=== PATIENT | female | born 1935 | race Caucasian/White ===

== ENCOUNTER 2019-12-26 11:57 | Inpatient (IN) | payer OTHER, SELFPAY ==
[~2019-12-26] VITALS: Ht 160 cm; Wt 72.6 kg
[2019-12-26 12:30] VITALS: BP_SYST 99
[2019-12-26 13:40] LABS: BASOPHILS % (AUTO) 0.2 % (0.0-2.0); EOSINOPHILS % (AUTO) 0.2 % (0.0-4.0); HEMATOCRIT 34.7 % (36-48); HEMOGLOBIN 11.5 g/dL (12.0-16.0); LYMPHOCYTES # (AUTO) 0.5 K/uL (1.0-5.5); LYMPHOCYTES % (AUTO) 2.7 % (20.5-51.5); MEAN CORPUSCULAR HEMOGLOBIN 31 pg (27-31); MEAN CORPUSCULAR HGB CONC 33 % (32-36); MEAN CORPUSCULAR VOLUME 92 fL (79.0-98.0); MONOCYTES # (AUTO) 1.4 K/uL (0.0-1.0); MONOCYTES % (AUTO) 7.3 % (1.7-9.3); NEUTROPHILS # (AUTO) 17.6 K/uL (1.8-7.7); NEUTROPHILS % (AUTO) 89.6 % (40.0-70.0); PLATELET COUNT (AUTO) 382 K/uL (130-430); RED BLOOD CELL COUNT(AUTO) 3.76 MIL/uL (4.2-6.2); RED CELL DISTRIBUTION WIDTH 14.2 % (9.0-15.0); WHITE BLOOD COUNT (AUTO) 19.6 K/uL (4.8-10.8)
[2019-12-26 13:56] LABS: ANION GAP 13 (5-15); CALCIUM 8.8 mg/dL (8.4-11.0); CHLORIDE 95 mmol/L (98-107); CREATININE 5.39 mg/dL (0.55-1.30); GLUCOSE 138 mg/dL (70-99); POTASSIUM 5.3 mmol/L (3.5-5.1); SODIUM SERUM 127 mmol/L (136-145)
[2019-12-26 13:57] LABS: INR 1.7 (0.8-1.2); PROTHROMBIN TIME 17.6 SECS (9.5-12.5)
[2019-12-26 13:59] LABS: UREA NITROGEN, BLOOD 136 mg/dL (8-21)
[2019-12-26 14:01] LABS: ALANINE AMINOTRANSFERASE 67 U/L (12-78); ASPARTATE AMINOTRANSFERASE 76 U/L (10-37); TOTAL BILIRUBIN 0.8 mg/dL (0.0-1.0)
--- NOTE | 2019-12-26 14:08 | NUR ---
BROUGHT BACK TO BED #3 VIA WHEELCHAIR, PLACED IN BED AND REPORT GIVEN TO RICH
--- NOTE | 2019-12-26 14:10 | NUR ---
Patient arrived in the ED c/o generalized weakness, UTI, yeast infection, groin pain, and bruising on the left inner thigh for the last 2 days. Denied any chest pain or shortness of breath. Denied any fevers, chills, nausea or vomiting. Patient is alert and oriented x3, respirations even and unlabored, speaking in full sentences, and ambulating with a steady gait. VSS, pain level 4/10. Informed of the approximate wait time. Instructed to notify ED staff for any changes in condition or worsening of symptoms while waiting to be seen by an ED provider. Patient verbalized understanding.
[2019-12-26] MEDS ORDERED: NACL 0.9% 1,000 ML IV ONE ×2 (14:30→15:15)
--- NOTE | 2019-12-26 15:05 | NUR ---
# 22 gauge angiocath placed to LFA. Use of asceptic technique. Opsite placed over site. Blood return noted. Blood for lab drawn from site. Flushed with 10 cc of normal saline. No evidence of infiltration noted. Patient tolerated well.
--- NOTE | 2019-12-26 15:10 | NUR ---
ER Dr. Redmond at bedside examining patient.
[2019-12-26 15:41] LABS: BILIRUBIN,URINE NEGATIVE (NEGATIVE); CLARITY/URINE CLEAR (CLEAR); COLOR,URINE YELLOW (YELLOW); GLUCOSE,URINE NEGATIVE (NEGATIVE); KETONES,URINE NEGATIVE (NEGATIVE); LEUKOCYTE ESTERASE ,URINE 1+ (NEGATIVE); NITRITE, URINE NEGATIVE (NEGATIVE); PROTEIN URINE NEGATIVE (NEGATIVE); UROBILINOGEN,URINE 0.2 (0.2-1.0)
[2019-12-26] MEDS ORDERED: cefTRIAXone 1 GM IVPB PREMIX 50 ML IV ONE (15:45)
[2019-12-26 15:52] LABS: BLOOD, URINE TRACE (NEGATIVE)
--- NOTE | 2019-12-26 16:09 | NUR ---
Received admitting orders from Dr. Thapa.
[2019-12-26 16:28] LABS: BACTERIA,URINE None Seen /HPF (None Seen); RBC,URINE 0-3 /HPF (0-3)
[2019-12-26 16:29] LABS: MUCUS,URINE None Seen /LPF (None Seen)
--- NOTE | 2019-12-26 17:55 | NUR ---
Patient will be admitted to care of Dr. Thapa. Admitted to Tele unit. Will go to room 104B. Belongings list completed. Complete and up to date summary report printed. SBAR report to be given at bedside with opportunity for questions.
[2019-12-26] MEDS ORDERED: PIPERACILLIN/TAZO 3.375/DEX-IS 50 ML IV SCH (18:00)
--- NOTE | 2019-12-26 18:25 | NUR ---
ADMISSION NOTE Received patient from ER via muna, received report from Pretty FARR. Patient admitted with diagnosis of Sepsis, Renal Failure. Patient oriented to hospital routine, call light, toileting and safety-patient verbalized her understanding. Call light within reach.
[2019-12-26] MEDS ORDERED: PIPERACILLIN/TAZO 2.25G/DEX-IS 50 ML IV ONE (18:30)
--- NOTE | 2019-12-26 19:30 | NUR ---
Initial Note: Received report from susan RN. Patient is in bed, resting. No acute distress. Even, nonlabored breathing on room air. IV site is patent and intact. Bed is locked at lowest position. Side rails up x3. Bed alarm on. Call light is with patient. Safety and fall precautions in place. Will continue with plan of care.
[2019-12-26 19:42] VITALS: BP_SYST 157
[2019-12-26 20:00] VITALS: BP_SYST 139
[2019-12-26] MEDS: NACL 0.9% 1,000 ML IV SCH (20:58)
--- NOTE | 2019-12-26 21:48 | NUR ---
CONSULT REASON FOR CONSULT:RENAL FAILURE PERSON I SPOKE WITH: CHRIS CONSULTING PHYSICIAN: DR. ESCOBEDO SPECIMEN PROCESSOR PHONE NUMBER: [phone] ORDERING PHYSICIAN: DR. BRODERICK
--- NOTE | 2019-12-26 22:00 | NUR ---
Rounds: Patient is watching TV in bed. No s/s of acute distress. Tolerating room air. Even, nonlabored breathing. Call light is with patient. Safety and fall precautions in place.
--- NOTE | 2019-12-26 22:33 | NUR ---
Spoke to family member: Spoke to patient's son, Deni [phone], over the phone. Updated on patient status.
[2019-12-26] MEDS ORDERED: PIPERACILLIN/TAZOBACTAM 2.25 GM VIAL IV ONE (23:36)
[2019-12-27] VITALS: BP_SYST 134
--- NOTE | 2019-12-27 00:10 | NUR ---
Rounds: Patient is resting in bed. Pericare performed at this time. No acute distress. Breathing is even, nonlabored on room air. Call light is with a patient. Safety and fall precautions in place. Will continue monitoring.
--- NOTE | 2019-12-27 02:14 | NUR ---
Rounds: Patient is sleeping in bed. No s/s of acute distress. Breathing is even and unlabored. Call light is with patient. Safety and fall precautions in place. Will continue monitoring.
[2019-12-27] MEDS: NACL 0.9% 1,000 ML IV SCH ×4 (02:15→19:40)
--- NOTE | 2019-12-27 04:17 | NUR ---
Rounds: Patient is watching TV in bed. No signs of acute distress. Respirations even and unlabored. Call light is with patient. Safety and fall precautions in place. Will continue to monitor patient.
[2019-12-27] MEDS: PIPERACILLIN/TAZO 2.25G/DEX-IS 50 ML IV SCH ×3 (05:02→21:13)
--- NOTE | 2019-12-27 06:25 | NUR ---
Closing Note: Patient is in bed, resting. No acute distress. Even, nonlabored breathing on room air. IV site is patent and intact. All needs met. Bed is locked at lowest position. Side rails up x3. Bed alarm on. Call light is with patient. Safety and fall precautions in place. Will endorse care to dayshift RN.
--- NOTE | 2019-12-27 07:20 | NUR ---
OPENING NOTES PT RESTING IN BED, CHEST RISE AND FALL NOTED. NONLABORED BREATHING NOTED ON ROOM AIR. IV LINE INTACT AND PATENT, NO SIGNS OF INFILTRATION NOTED. NO ACUTE DISTRESS NOTED. ALL NEEDS MET. CALL LIGHT IN REACH. FALL AND ASPIRATION PRECAUTIONS IN PLACE. CONTINUE TO MONITOR.
[2019-12-27 07:30] LABS: BASOPHILS % (AUTO) 0.1 % (0.0-2.0); EOSINOPHILS % (AUTO) 0.3 % (0.0-4.0); HEMOGLOBIN 9.9 g/dL (12.0-16.0); LYMPHOCYTES # (AUTO) 0.5 K/uL (1.0-5.5); LYMPHOCYTES % (AUTO) 2.9 % (20.5-51.5); MEAN CORPUSCULAR HEMOGLOBIN 31 pg (27-31); MEAN CORPUSCULAR HGB CONC 33 % (32-36); MEAN CORPUSCULAR VOLUME 93 fL (79.0-98.0); MONOCYTES # (AUTO) 1.4 K/uL (0.0-1.0); MONOCYTES % (AUTO) 8.6 % (1.7-9.3); NEUTROPHILS # (AUTO) 14.3 K/uL (1.8-7.7); NEUTROPHILS % (AUTO) 88.1 % (40.0-70.0); PLATELET COUNT (AUTO) 381 K/uL (130-430); RED BLOOD CELL COUNT(AUTO) 3.23 MIL/uL (4.2-6.2); RED CELL DISTRIBUTION WIDTH 14.5 % (9.0-15.0); WHITE BLOOD COUNT (AUTO) 16.2 K/uL (4.8-10.8)
[2019-12-27 07:39] LABS: ALANINE AMINOTRANSFERASE 57 U/L (12-78); ALBUMIN 1.7 g/dL (3.4-4.8); ANION GAP 15 (5-15); ASPARTATE AMINOTRANSFERASE 56 U/L (10-37); CALCIUM 8.5 mg/dL (8.4-11.0); CHLORIDE 101 mmol/L (98-107); CREATININE 4.57 mg/dL (0.55-1.30); GLUCOSE 97 mg/dL (70-99); SODIUM SERUM 132 mmol/L (136-145); TOTAL BILIRUBIN 0.7 mg/dL (0.0-1.0)
[2019-12-27 08:06] VITALS: BP_SYST 134
[2019-12-27 08:51] LABS: UREA NITROGEN, BLOOD 129 mg/dL (8-21)
--- NOTE | 2019-12-27 08:58 | NUR ---
Nutrition Update Charlie scale 13 noted. Pt admitted for sepsis, renal failure Diet: Mechanical Soft BMI: 28.3 kg/m2 RD to follow per nutrition care standards.
--- NOTE | 2019-12-27 09:00 | NUR ---
ROUNDS PT RESTING IN BED, CHEST RISE AND FALL NOTED. NO ACUTE DISTRESS NOTED. NO S/S OF PAIN OR SOB NOTED. CONTINUE TO MONITOR.
--- NOTE | 2019-12-27 10:16 | NUR ---
SPOKE TO PATIENT'S SON DASIA ON FACE SHEET OVER THE PHONE, REQUESTED FOR MED LIST. STATED THAT LIST WAS GIVEN TO E.R., BUT MED RECON NOT DONE. DASIA STATED WILL FAX OVER MED SHEET TO [phone].
[2019-12-27 11:32] VITALS: BP_SYST 119
--- NOTE | 2019-12-27 12:00 | NUR ---
RECEIVED PT'S MED LIST THROUGH THE PHONE FROM PT'S SON DASIA, WILL INPUT IN MED RECON
--- NOTE | 2019-12-27 12:49 | NUR ---
ROUNDS PT WATCHING TV IN BED AND EATING LUNCH. NO ACUTE DISTRESS NOTED. ALL NEEDS MET. CALL LIGHT IN REACH. CONTINUE TO MONITOR.
--- NOTE | 2019-12-27 13:11 | NUR ---
IV ABX ADMINISTERED ORDERED PER MD, EDUCATION GIVEN, TOLERATED WELL. CONTINUE TO MONITOR.
--- NOTE | 2019-12-27 13:25 | NUR ---
GAVE REPORT TO GAYE FARR, ENDORSED MED RECON LIST TO BE DONE AND INTERVENTIONS. RN VERBALIZED UNDERSTANDING.
--- NOTE | 2019-12-27 16:45 | NUR ---
RN Rounds patient struggling with her breathing, patient's SPO2 within normal limits, repositioned patient, patient in stable condition, no other needs at this time, safety measures maintained.
--- NOTE | 2019-12-27 19:20 | NUR ---
Closing Note patient in bed resting, no signs of distress noted, bed locked and at low position, call light within reach, endorsed patient care to oncoming weight shifter nurse, endorsed med reconciliation to be complete.
--- NOTE | 2019-12-27 19:30 | NUR ---
Initial Note: Received report from susan RN. Patient is in bed, eating. No acute distress. Even, nonlabored breathing on room air. IV site is patent and intact. Bed is locked at lowest position. Side rails up x3. Bed alarm on. Call light is with patient. Safety and fall precautions in place. Will continue with plan of care.
[2019-12-27 20:00] VITALS: BP_SYST 142
--- NOTE | 2019-12-27 21:30 | NUR ---
Rounds: Patient is watching TV in bed. No s/s of acute distress. Respirations even, nonlabored on room air. Call light is with patient. Safety and fall precautions in place. Addendum: 12/28/19 at 0147 by Kary Hurd RN Will continue monitoring.
[2019-12-27] MEDS ORDERED: ALLO100T PO (22:32)
[2019-12-27] MEDS ORDERED: RIVA15TA PO (22:41)
[2019-12-27] MEDS ORDERED: OXYB5TAB18 PO ×2 (22:41→22:43)
[2019-12-27] MEDS ORDERED: CARV12.548 PO (22:41)
[2019-12-27] MEDS ORDERED: MONT10TA22 PO (22:41)
[2019-12-27] MEDS ORDERED: FURO-150 PO (22:41)
[2019-12-27] MEDS ORDERED: FLEC50TA2 PO (22:41)
[2019-12-27] MEDS ORDERED: PRO40 PO (22:41)
[2019-12-27] MEDS ORDERED: LOSA50TA28 PO (22:41)
[2019-12-27] MEDS ORDERED: SIMV40TA2 PO (22:43)
[2019-12-27] MEDS ORDERED: LOSA100T3 PO (22:43)
[2019-12-27] MEDS ORDERED: NITR-85 PO ×2 (22:49→22:51)
[2019-12-27] MEDS ORDERED: AUG875 PO (22:49)
--- NOTE | 2019-12-27 23:45 | NUR ---
Rounds: Patient is sleeping in bed. No signs of acute distress. Breathing is even and unlabored on room air. Call light is with patient. Safety and fall precautions in place. Will continue to monitor.
[2019-12-28 00:25] VITALS: BP_SYST 152
[2019-12-28 00:51] VITALS: BP_SYST 158
--- NOTE | 2019-12-28 02:00 | NUR ---
Rounds: Patient is resting in bed. No s/s of acute distress. Breathing is even, nonlabored. Call light is with patient. Safety and fall precautions in place. Will continue monitoring.
--- NOTE | 2019-12-28 04:15 | NUR ---
Rounds: Patient is sleeping in bed. No s/s of acute distress. Breathing is even and unlabored on room air. Call light is with patient. Safety and fall precautions in place. Will continue to monitor patient.
[2019-12-28] MEDS: NACL 0.9% 1,000 ML IV SCH ×2 (05:04→18:21)
[2019-12-28] MEDS: PIPERACILLIN/TAZO 2.25G/DEX-IS 50 ML IV SCH ×3 (05:05→22:09)
[2019-12-28 06:17] LABS: BASOPHILS # (AUTO) 0.1 K/uL (0.0-0.2); BASOPHILS % (AUTO) 0.5 % (0.0-2.0); EOSINOPHILS % (AUTO) 0.2 % (0.0-4.0); HEMATOCRIT 28.5 % (36-48); HEMOGLOBIN 9.5 g/dL (12.0-16.0); LYMPHOCYTES # (AUTO) 0.5 K/uL (1.0-5.5); LYMPHOCYTES % (AUTO) 3.3 % (20.5-51.5); MEAN CORPUSCULAR HEMOGLOBIN 31 pg (27-31); MEAN CORPUSCULAR HGB CONC 33 % (32-36); MEAN CORPUSCULAR VOLUME 92 fL (79.0-98.0); MONOCYTES # (AUTO) 1.5 K/uL (0.0-1.0); MONOCYTES % (AUTO) 9.9 % (1.7-9.3); NEUTROPHILS # (AUTO) 13.2 K/uL (1.8-7.7); NEUTROPHILS % (AUTO) 86.1 % (40.0-70.0); PLATELET COUNT (AUTO) 392 K/uL (130-430); RED BLOOD CELL COUNT(AUTO) 3.08 MIL/uL (4.2-6.2); RED CELL DISTRIBUTION WIDTH 14.5 % (9.0-15.0); WHITE BLOOD COUNT (AUTO) 15.4 K/uL (4.8-10.8)
[2019-12-28 06:38] LABS: ALANINE AMINOTRANSFERASE 86 U/L (12-78); ALBUMIN 1.5 g/dL (3.4-4.8); ANION GAP 13 (5-15); CHLORIDE 108 mmol/L (98-107); CREATININE 3.75 mg/dL (0.55-1.30); GLUCOSE 113 mg/dL (70-99); POTASSIUM 4.5 mmol/L (3.5-5.1); SODIUM SERUM 138 mmol/L (136-145); TOTAL BILIRUBIN 0.6 mg/dL (0.0-1.0)
--- NOTE | 2019-12-28 07:15 | NUR ---
Initial Note: Received report from bam RN. Patient is in bed. No acute distress. Even, nonlabored breathing on room air. IV site is patent and intact. Bed is locked at lowest position. Side rails up x3. Bed alarm on. Call light is with patient. Safety and fall precautions in place. Will continue with plan of care. Addendum: 12/28/19 at 1816 by [employer] one valve inserter wrong pt.
--- NOTE | 2019-12-28 07:22 | NUR ---
Initial Note: Received report from nightshift RN. Patient is in bed. No acute distress. Even, nonlabored breathing on room air. IV site is patent and intact. Bed is locked at lowest position. Side rails up x3. Bed alarm on. Call light is with patient. Safety and fall precautions in place. Will continue with plan of care.
[2019-12-28 07:53] LABS: UREA NITROGEN, BLOOD 113 mg/dL (8-21)
[2019-12-28 07:54] LABS: ASPARTATE AMINOTRANSFERASE 89 U/L (10-37)
--- NOTE | 2019-12-28 10:27 | NUR ---
CONSULTATION PAGED/CALLED Reason for Consultation: BLADDER MASS Person Who was Notified: ANA MARIA Consulting Physician: TONJA GERMAIN Ordering Physician: MEGGAN
--- NOTE | 2019-12-28 10:48 | NUR ---
Dietitian Recommendations *Recommend continue Mechanical Soft Diet *Recommend add Glucerna BID to provide additional 440 kcal, 20 g protein to promote PO intake and for glycemic control. *Encourage pt to increase PO intake during meal times. Please see Nutrition Assessment for details. CARMEN DANIEL
[2019-12-28 12:00] VITALS: BP_SYST 156
[2019-12-28 16:00] VITALS: BP_SYST 164
--- NOTE | 2019-12-28 19:30 | NUR ---
OPENING NOTES RECEIVED REPORT FROM DAY SHIFT RN. PT RESTING IN BED, ALERT & ORIENTED X3. BREATHING EVEN AND UNLABORED TO ROOM AIR. NO SIGNS OF RESPIRATORY DISTRESS NOTED. LEFT AC 22G INTACT, IVF RUNNING ORDERED RATE. NO SIGNS OF INFILTRATION NOTED. BED ALARM ON, LOCKED IN LOWEST POSITION. SIDE RAILS UP X3. CALL LIGHT WITHIN REACH. SAFETY AND FALL PRECAUTIONS MAINTAINED. WILL CONTINUE TO MONITOR.
[2019-12-28 20:00] VITALS: BP_SYST 119
--- NOTE | 2019-12-28 22:14 | NUR ---
DR. MARCELLUS EVANGELISTA AT THE BEDSIDE. NEW ORDER RECEIVED.
[2019-12-28 23:21] LABS: BILIRUBIN,URINE NEGATIVE (NEGATIVE); BLOOD, URINE 2+ (NEGATIVE); CLARITY/URINE CLOUDY (CLEAR); COLOR,URINE YELLOW (YELLOW); GLUCOSE,URINE NEGATIVE (NEGATIVE); KETONES,URINE NEGATIVE (NEGATIVE); LEUKOCYTE ESTERASE ,URINE 3+ (NEGATIVE); NITRITE, URINE NEGATIVE (NEGATIVE); PROTEIN URINE 2+ (NEGATIVE); UROBILINOGEN,URINE 0.2 (0.2-1.0)
[2019-12-28 23:26] LABS: BACTERIA,URINE MODERATE /HPF (None Seen); RBC,URINE 20-50 /HPF (0-3); WBC,URINE >100 /HPF (0-3)
--- NOTE | 2019-12-28 23:35 | NUR ---
RN ROUNDS PT RESTING IN BED. BREATHING EVEN AND UNLABORED TO ROOM AIR. IVF RUNNING ORDERED RATE. PT TOLERATING WELL. CLARKE CATHETER INTACT, DRAINING BY GRAVITY. CALL LIGHT WITHIN REACH. BED ALARM ON, LOCKED IN LOWEST POSITION. SAFETY AND FALL PRECAUTIONS MAINTAINED. WILL CONTINUE TO MONITOR.
[2019-12-29 00:24] VITALS: BP_SYST 152
[2019-12-29] MEDS: NACL 0.9% 1,000 ML IV SCH ×2 (01:22→14:15)
--- NOTE | 2019-12-29 02:05 | NUR ---
RN ROUNDS PT RESTING IN BED. BREATHING EVEN AND UNLABORED TO ROOM AIR. NO S/S OF SHORTNESS OF BREATH NOTED. IVF RUNNING ORDERED RATE. CLARKE CATHETER INTACT, DRAINING BY GRAVITY. CALL LIGHT WITHIN REACH. BED ALARM ON, LOCKED IN LOWEST LEVEL. SAFETY AND FALL PRECAUTIONS MAINTAINED. WILL MONITOR.
[2019-12-29] MEDS: PIPERACILLIN/TAZO 2.25G/DEX-IS 50 ML IV SCH ×3 (05:07→22:17)
--- NOTE | 2019-12-29 05:07 | NUR ---
HUNG ZOSYN HUNG ZOSYN ORDERED RATE. NO S/S OF ADVERSE REACTION NOTED. PT TOLERATING WELL. BREATHING EVEN AND UNLABORED TO ROOM AIR. O2 SAT 94%. IVF RUNNING ORDERED RATE. CALL LIGHT WITHIN REACH. BED ALARM ON, LOCKED IN LOWEST LEVEL. SAFETY AND FALL PRECAUTIONS MAINTAINED. WILL CONTINUE TO MONITOR.
[2019-12-29 06:27] LABS: BASOPHILS % (AUTO) 0.3 % (0.0-2.0); EOSINOPHILS # (AUTO) 0.1 K/uL (0.0-0.4); EOSINOPHILS % (AUTO) 0.8 % (0.0-4.0); HEMATOCRIT 28.6 % (36-48); HEMOGLOBIN 9.5 g/dL (12.0-16.0); LYMPHOCYTES # (AUTO) 0.6 K/uL (1.0-5.5); LYMPHOCYTES % (AUTO) 4.8 % (20.5-51.5); MEAN CORPUSCULAR HEMOGLOBIN 31 pg (27-31); MEAN CORPUSCULAR HGB CONC 33 % (32-36); MEAN CORPUSCULAR VOLUME 93 fL (79.0-98.0); MONOCYTES # (AUTO) 1.4 K/uL (0.0-1.0); MONOCYTES % (AUTO) 10.6 % (1.7-9.3); NEUTROPHILS # (AUTO) 10.6 K/uL (1.8-7.7); NEUTROPHILS % (AUTO) 83.5 % (40.0-70.0); PLATELET COUNT (AUTO) 371 K/uL (130-430); RED BLOOD CELL COUNT(AUTO) 3.09 MIL/uL (4.2-6.2); WHITE BLOOD COUNT (AUTO) 12.7 K/uL (4.8-10.8)
--- NOTE | 2019-12-29 06:32 | NUR ---
CLOSING NOTES PT RESTING IN BED. BREATHING EVEN AND UNLABORED TO ROOM AIR. NO SIGNS OF RESPIRATORY DISTRESS NOTED. LEFT AC 22G INTACT, IVF RUNNING ORDERED RATE. NO SIGNS OF INFILTRATION NOTED. CLARKE CATHETER INTACT, DRAINING BY GRAVITY. BED ALARM ON, LOCKED IN LOWEST POSITION. SIDE RAILS UP X3. CALL LIGHT WITHIN REACH. SAFETY AND FALL PRECAUTIONS MAINTAINED. ALL NEEDS ARE MET THROUGHOUT THE SHIFT. WILL CONTINUE TO MONITOR UNTIL ENDORSE TO DAY SHIFT RN.
[2019-12-29 06:53] LABS: ALANINE AMINOTRANSFERASE 80 U/L (12-78); ALBUMIN 1.5 g/dL (3.4-4.8); ANION GAP 12 (5-15); ASPARTATE AMINOTRANSFERASE 65 U/L (10-37); CHLORIDE 112 mmol/L (98-107); CREATININE 3.18 mg/dL (0.55-1.30); GLUCOSE 129 mg/dL (70-99); POTASSIUM 4.5 mmol/L (3.5-5.1); SODIUM SERUM 141 mmol/L (136-145); TOTAL BILIRUBIN 0.6 mg/dL (0.0-1.0); UREA NITROGEN, BLOOD 95 mg/dL (8-21)
[2019-12-29 08:00] VITALS: BP_SYST 152
[2019-12-29 12:09] VITALS: BP_SYST 151
[2019-12-29 12:36] LABS: BILIRUBIN,URINE NEGATIVE (NEGATIVE); BLOOD, URINE 3+ (NEGATIVE); CLARITY/URINE TURBID (CLEAR); COLOR,URINE YELLOW (YELLOW); GLUCOSE,URINE NEGATIVE (NEGATIVE); KETONES,URINE NEGATIVE (NEGATIVE); LEUKOCYTE ESTERASE ,URINE 3+ (NEGATIVE); NITRITE, URINE NEGATIVE (NEGATIVE); PH,URINE 5.5 (5.0-8.0); PROTEIN URINE 2+ (NEGATIVE); UROBILINOGEN,URINE 0.2 (0.2-1.0)
[2019-12-29 12:52] LABS: BACTERIA,URINE MANY /HPF (None Seen); RBC,URINE 20-50 /HPF (0-3); WBC,URINE >100 /HPF (0-3)
[2019-12-29 16:06] VITALS: BP_SYST 135
--- NOTE | 2019-12-29 18:11 | NUR ---
Pleasantly confused, but alert, UA collected again today, (+), seen by both nephro, (bun/cr 95/3.18), and attending. continues with ivf and abx as ordered
--- NOTE | 2019-12-29 19:30 | NUR ---
OPENING NOTES RECEIVED REPORT FROM DAY SHIFT RN. PT RESTING IN BED, WATCHING TV. BREATHING EVEN AND UNLABORED TO ROOM AIR. PT JUNE ANY PAIN AT THIS TIME. LEFT AC22G INTACT, IVF RUNNING ORDERED RATE. NO SIGNS OF INFILTRATION NOTED. CLARKE CATHETER INTACT, DRAINING BY GRAVITY. CALL LIGHT WITHIN REACH. BED ALARM ON, LOCKED IN LOWEST POSITION. SAFETY AND FALL PRECAUTIONS MAINTAINED. WILL CONTINUE TO MONITOR.
[2019-12-29 20:00] VITALS: BP_SYST 157
--- NOTE | 2019-12-29 22:17 | NUR ---
HUNG ZOSYN HUNG ZOSYN ORDERED RATE. NO SIGNS OF INFILTRATION NOTED. PT TOLERATING WELL. CHEST RISE AND FALL SYMMETRICAL. NO SIGNS OF RESPIRATORY DISTRESS NOTED. CALL LIGHT WITHIN REACH. SIDE RAILS UP X3. BED ALARM ON, LOCKED IN LOWEST POSITION. SAFETY AND FALL PRECAUTIONS MAINTAINED. WILL CONTINUE TO MONITOR.
--- NOTE | 2019-12-30 00:35 | NUR ---
RN ROUNDS PT RESTING IN BED. BREATHING EVEN AND UNLABORED TO ROOM AIR. NO S/S OF ACUTE DISTRESS NOTED. IVF RUNNING ORDERED RATE. CALL LIGHT WITHIN REACH. BED ALARM ON, LOCKED IN LOWEST POSITION. SAFETY AND FALL PRECAUTIONS MAINTAINED. WILL MONITOR.
[2019-12-30 02:42] VITALS: BP_SYST 158
[2019-12-30 02:48] VITALS: BP_SYST 158
[2019-12-30] MEDS: NACL 0.9% 1,000 ML IV SCH ×2 (05:01→12:03)
[2019-12-30] MEDS: PIPERACILLIN/TAZO 2.25G/DEX-IS 50 ML IV SCH ×3 (05:02→21:29)
--- NOTE | 2019-12-30 06:55 | NUR ---
CLOSING NOTES PT RESTING IN BED. BREATHING EVEN AND UNLABORED TO ROOM AIR. PT JUNE ANY PAIN AT THIS TIME. LEFT AC22G INTACT, IVF RUNNING ORDERED RATE. NO SIGNS OF INFILTRATION NOTED. CLARKE CATHETER INTACT, DRAINING BY GRAVITY. CALL LIGHT WITHIN REACH. BED ALARM ON, LOCKED IN LOWEST POSITION. SAFETY AND FALL PRECAUTIONS MAINTAINED. ALL NEEDS ARE MET THROUGHOUT SHIFT. WILL CONTINUE TO MONITOR UNTIL ENDORSE TO DAY SHIFT RN.
[2019-12-30 08:00] VITALS: BP_SYST 170
[2019-12-30 08:00] LABS: ANION GAP 11 (5-15); CALCIUM 8.4 mg/dL (8.4-11.0); CHLORIDE 117 mmol/L (98-107); CREATININE 2.34 mg/dL (0.55-1.30); GLUCOSE 127 mg/dL (70-99); POTASSIUM 5.1 mmol/L (3.5-5.1); SODIUM SERUM 146 mmol/L (136-145); UREA NITROGEN, BLOOD 72 mg/dL (8-21)
[2019-12-30] MEDS ORDERED: CARVEDILOL 12.5 MG TABLET (COREG) PO ONE (11:45)
[2019-12-30 12:08] VITALS: BP_SYST 171
[2019-12-30 16:13] VITALS: BP_SYST 162
[2019-12-30] MEDS ORDERED: MONT10TA27 PO (17:03)
[2019-12-30] MEDS: MONTELUKAST 10 MG TABLET PO SCH (18:31)
--- NOTE | 2019-12-30 19:40 | NUR ---
ROUNDS PATIENT RESTING COMFORTABLY IN BED, NOT IN DISTRESS, VITALS STABLE. DENIES ANY PAIN AND DISCOMFORT AT THIS TIME. ASSESSMENT DONE AND DOCUMENTED. SEE FLOWSHEET. NEEDS ATTENDED TO. SAFETY AND FALL MEASURES IN PLACED. CALL LIGHT PLACED WITHIN REACH.
--- NOTE | 2019-12-30 21:14 | NUR ---
MEDICATIONS DUE MEDICATIONS GIVEN SCHEDULED, TOLERATED WELL. WILL CONTINUE TO MONITOR.
[2019-12-30] MEDS: NITROFURANTOIN MONOHYD/M-CRYST 100 MG CAPSULE PO SCH (21:28)
[2019-12-30] MEDS: SIMVASTATIN 40 MG TABLET PO SCH (21:28)
[2019-12-30] MEDS: FLECAINIDE ACETATE 50 MG TABLET (TAMBOCOR) PO SCH (21:29)
[2019-12-31] VITALS: BP_SYST 149
--- NOTE | 2019-12-31 00:16 | NUR ---
PATIENT RESTING: Patient resting quietly. No acute distress noted. Vital signs within normal range.
--- NOTE | 2019-12-31 02:17 | NUR ---
ROUNDS PATIENT ASLEEP, RESPIRATIONS EVEN AND UNLABORED, WILL CONTINUE TO MONITOR.
--- NOTE | 2019-12-31 04:12 | NUR ---
ROUNDS PATIENT SLEEPING, RESPIRATIONS EVEN AND UNLABORED, WILL CONTINUE TO MONITOR.
[2019-12-31] MEDS: PIPERACILLIN/TAZO 2.25G/DEX-IS 50 ML IV SCH ×3 (05:48→21:18)
--- NOTE | 2019-12-31 06:55 | NUR ---
CLOSING NOTES PATIENT RESTING IN BED AT THIS TIME, VITALS STABLE, NO COMPLAINTS. ALL NEEDS ATTENDED TO. SAFETY MEASURES MAINTAINED. CALL LIGHT PLACED WITHIN REACH.
[2019-12-31 07:30] LABS: ANION GAP 10 (5-15); CALCIUM 8.4 mg/dL (8.4-11.0); CHLORIDE 113 mmol/L (98-107); CREATININE 2.05 mg/dL (0.55-1.30); GLUCOSE 114 mg/dL (70-99); SODIUM SERUM 143 mmol/L (136-145); UREA NITROGEN, BLOOD 58 mg/dL (8-21)
--- NOTE | 2019-12-31 08:00 | NUR ---
awake,alert,BP elevated to 180/104,no c/o pain or discomfort,give am meds due for HTN,IVF continue infusing. needs attended,call light & personal items within pt reach,safety maintained.continue to monitor pt.
[2019-12-31] MEDS: OXYBUTYNIN CHLORIDE 5 MG TABLET PO SCH (08:36)
[2019-12-31] MEDS: FLECAINIDE ACETATE 50 MG TABLET (TAMBOCOR) PO SCH ×2 (08:36→20:19)
[2019-12-31] MEDS: ALLOPURINOL 100 MG TABLET (ZYLOPRIM) PO SCH (08:37)
[2019-12-31] MEDS: CARVEDILOL 12.5 MG TABLET (COREG) PO SCH (08:37)
[2019-12-31] MEDS: PANTOPRAZOLE SODIUM 40 MG TAB PO SCH (08:38)
[2019-12-31] MEDS: RIVAROXABAN 15 MG TABLET PO SCH (08:40)
[2019-12-31] MEDS: NITROFURANTOIN MONOHYD/M-CRYST 100 MG CAPSULE PO SCH ×2 (08:43→20:17)
[2019-12-31] MEDS: NACL 0.9% 1,000 ML IV SCH (08:51)
[2019-12-31] MEDS ORDERED: MONTELUKAST 10 MG TABLET PO SCH (09:00)
[2019-12-31] MEDS ORDERED: OXYBUTYNIN CHLORIDE 5 MG TABLET PO SCH (09:00)
--- NOTE | 2019-12-31 10:00 | NUR ---
pt resting in bed,hourly rounds made,safety maintained.
--- NOTE | 2019-12-31 12:00 | NUR ---
vss,pt resting well in bed,IVF continue infusing,hourly rounds made,safety maintained.
[2019-12-31 12:23] VITALS: BP_SYST 144
[2019-12-31 16:23] VITALS: BP_SYST 145
--- NOTE | 2019-12-31 17:27 | NUR ---
opening note received sbar from CHIKA Larios, patient in bed resipirations even non labored, bed in low and locked position
--- NOTE | 2019-12-31 17:35 | NUR ---
Nutrition F/U (short note d/t high patient load) RD reviewed pt's current EMR including diet Hx, physician notes, nursing notes, pertinent labs/meds/procedures, care trends, and care activity. Current Diet Order: N/A -- however, pt has been receiving mechanical soft diet; pt's diet order may have been accidently completed via [employer], however, was kept active in [employer] program Per EMR review, pt seems to continue w/ poor appetite, about 42% average x7 meals since last RD visit, 12/27. Concur w/ previous RD rec for mechanical soft diet w/ Glucerna BID to provide additional nutrition (440 kcal/day, 20 gm protein/day). Encourage increase PO intakes. Pt remains at high nutritional risk; RD to F/U within 2-3 days.
[2019-12-31] MEDS: MONTELUKAST 10 MG TABLET PO SCH (17:44)
--- NOTE | 2019-12-31 17:45 | NUR ---
nurse note administered medication, patient in bed, respirations even, non labored, bed in low and locked position, call light within reach, bed alarm on
--- NOTE | 2019-12-31 19:28 | NUR ---
CLOSING NOTE PROVIDED SBAR TO NIGHT RN, PATIENT IN BED, RESPIRATIONS EVEN, NON LABORED, BED IN LOW AND LOCKED POSITION, CALL LIGHT WITHIN REACH, BED ALARM ON, ENDORSED CARE TO NIGHT RN
--- NOTE | 2019-12-31 19:35 | NUR ---
ROUNDS PATIENT IN BED, WATCHING TV, NOT IN DISTRESS, VITALS STABLE. DENIES ANY PAIN AT THIS TIME. ASSESSMENT DONE AND DOCUMENTED. SEE FLOWSHEET. NEEDS ATTENDED TO. SAFETY MEASURES IN PLACED. BED IN LOW AND LOCKED POSITION. BED ALARM ON. CALL LIGHT PLACED WITHIN REACH.
[2019-12-31] MEDS: SIMVASTATIN 40 MG TABLET PO SCH (20:18)
--- NOTE | 2019-12-31 21:14 | NUR ---
MEDICATIONS DUE MEDICATIONS GIVEN SCHEDULED, TOLERATED WELL. WILL CONTINUE TO MONITOR.
[2020-01-01 00:11] VITALS: BP_SYST 153
--- NOTE | 2020-01-01 00:15 | NUR ---
PATIENT RESTING: Patient resting quietly. No acute distress noted. Vital signs within normal range.
--- NOTE | 2020-01-01 02:23 | NUR ---
ROUNDS PATIENT ASLEEP AT THIS TIME, NO SOB NOR PAIN AND DISCOMFORT NOTED, RESPIRATIONS EVEN AND UNLABORED. WILL CONTINUE TO MONITOR.
--- NOTE | 2020-01-01 04:12 | NUR ---
ROUNDS PATIENT SLEEPING, NO SIGNS OF ANY PAIN AND DISCOMFORT NOTED, RESPIRATIONS EVEN AND UNLABORED. WILL CONTINUE TO MONITOR.
[2020-01-01] MEDS: PIPERACILLIN/TAZO 2.25G/DEX-IS 50 ML IV SCH ×3 (05:12→21:26)
[2020-01-01] MEDS: NACL 0.9% 1,000 ML IV SCH (05:15)
--- NOTE | 2020-01-01 06:42 | NUR ---
CLOSING NOTES PATIENT RESTING WELL AT THIS TIME, NO SIGNS OF ANY PAIN AND DISCOMFORT NOTED. ALL NEEDS ATTENDED TO. SAFETY MEASURES MAINTAINED. BED IN LOW AND LOCKED POSITION. CALL LIGHT PLACED WITHIN REACH.
[2020-01-01] MEDS: NITROFURANTOIN MONOHYD/M-CRYST 100 MG CAPSULE PO SCH ×2 (08:29→21:26)
[2020-01-01] MEDS: PANTOPRAZOLE SODIUM 40 MG TAB PO SCH (08:29)
[2020-01-01] MEDS: OXYBUTYNIN CHLORIDE 5 MG TABLET PO SCH (08:29)
[2020-01-01] MEDS: CARVEDILOL 12.5 MG TABLET (COREG) PO SCH (08:29)
[2020-01-01 08:30] VITALS: BP_SYST 193
[2020-01-01] MEDS: FLECAINIDE ACETATE 50 MG TABLET (TAMBOCOR) PO SCH ×2 (08:30→21:33)
--- NOTE | 2020-01-01 08:30 | NUR ---
Routine Scheduled medications given per order. Patient eating breakfast at this time. Denies any pain. Patient stable.
[2020-01-01] MEDS: ALLOPURINOL 100 MG TABLET (ZYLOPRIM) PO SCH (08:31)
[2020-01-01] MEDS: RIVAROXABAN 15 MG TABLET PO SCH (08:31)
--- NOTE | 2020-01-01 10:00 | NUR ---
Routine Patient resting comfortably in bed with no complaint of any pain at this time. Patient stable.
[2020-01-01 11:13] LABS: BASOPHILS # (AUTO) 0.1 K/uL (0.0-0.2); EOSINOPHILS # (AUTO) 0.3 K/uL (0.0-0.4); EOSINOPHILS % (AUTO) 3.2 % (0.0-4.0); HEMATOCRIT 30.3 % (36-48); LYMPHOCYTES # (AUTO) 0.8 K/uL (1.0-5.5); LYMPHOCYTES % (AUTO) 7.9 % (20.5-51.5); MEAN CORPUSCULAR HEMOGLOBIN 31 pg (27-31); MEAN CORPUSCULAR HGB CONC 33 % (32-36); MEAN CORPUSCULAR VOLUME 94 fL (79.0-98.0); NEUTROPHILS # (AUTO) 7.9 K/uL (1.8-7.7); NEUTROPHILS % (AUTO) 77.9 % (40.0-70.0); PLATELET COUNT (AUTO) 397 K/uL (130-430); RED BLOOD CELL COUNT(AUTO) 3.23 MIL/uL (4.2-6.2); RED CELL DISTRIBUTION WIDTH 14.9 % (9.0-15.0); WHITE BLOOD COUNT (AUTO) 10.1 K/uL (4.8-10.8)
[2020-01-01 11:35] LABS: ALANINE AMINOTRANSFERASE 74 U/L (12-78); ALBUMIN 1.7 g/dL (3.4-4.8); ANION GAP 10 (5-15); ASPARTATE AMINOTRANSFERASE 50 U/L (10-37); CALCIUM 8.1 mg/dL (8.4-11.0); CHLORIDE 111 mmol/L (98-107); CREATININE 2.01 mg/dL (0.55-1.30); GLUCOSE 184 mg/dL (70-99); POTASSIUM 4.7 mmol/L (3.5-5.1); SODIUM SERUM 142 mmol/L (136-145); TOTAL BILIRUBIN 0.4 mg/dL (0.0-1.0); UREA NITROGEN, BLOOD 44 mg/dL (8-21)
--- NOTE | 2020-01-01 12:00 | NUR ---
Routine Patient resting quietly in bed. Denies any pain at this time. Patient stable at this time.
[2020-01-01 12:09] VITALS: BP_SYST 149
--- NOTE | 2020-01-01 13:15 | NUR ---
Routine Scheduled IV abx given per order. Patient eating lunch at this time. Patient stable.
--- NOTE | 2020-01-01 15:20 | NUR ---
Routine Patient resting comfortably in bed with no complaint of any pain. Patient stable at this time.
[2020-01-01 16:41] VITALS: BP_SYST 159
[2020-01-01] MEDS: MONTELUKAST 10 MG TABLET PO SCH (17:24)
--- NOTE | 2020-01-01 17:25 | NUR ---
Routine Scheduled po medication given per order. Patient stable at this time.
--- NOTE | 2020-01-01 18:10 | NUR ---
Routine Patient eating dinner. No distress noted. Patient stable throughout shift.
--- NOTE | 2020-01-01 19:00 | NUR ---
Received call from Dr. Tiwari. Per doctor, patient s/b NPO post-midnight because surgery will be done in early am.
--- NOTE | 2020-01-01 19:30 | NUR ---
Initial note: Received report from susan RN. Patient in bed, resting. No acute distress. Even and unlabored breathing on room air. IV site is patent and intact. Wagner is draining cloudy, yellow urine with sediments. Bed is locked at lowest position. Bed alarm is on. Side rails up x3. Call light is with patient. Safety and fall precautions in place. Will continue with plan of care.
[2020-01-01 20:00] VITALS: BP_SYST 148
[2020-01-01] MEDS: SIMVASTATIN 40 MG TABLET PO SCH (21:26)
--- NOTE | 2020-01-01 21:52 | NUR ---
Rounds: Patient verbalized understanding and consent for procedure in the morning. Verified again by this RN and charge auditor at this time. Patient alert, orient x4 at this time. No acute distress. Breathing is even, nonlabored. Call light is with patient. Safety and fall precautions in place. Will continue to monitor.
--- NOTE | 2020-01-02 00:05 | NUR ---
Rounds: Patient is watching TV in bed. No signs of acute distress. Even, nonlabored breathing on room air. Call light is with patient. Safety and fall precautions in place. Will continue to monitor.
[2020-01-02 00:28] VITALS: BP_SYST 155
[2020-01-02] MEDS: NACL 0.9% 1,000 ML IV SCH (01:42)
--- NOTE | 2020-01-02 02:15 | NUR ---
Rounds: Patient is resting in bed. No acute distress. Breathing is even and unlabored on room air. Call light is with patient. Safety and fall precautions in place. Will continue monitoring.
--- NOTE | 2020-01-02 04:30 | NUR ---
Rounds: Patient is resting in bed. No signs of acute distress. Even and unlabored breathing on room air. Call light is with patient. Safety and fall precautions in place. Will continue to monitor.
[2020-01-02] MEDS: PIPERACILLIN/TAZO 2.25G/DEX-IS 50 ML IV SCH (05:04)
--- NOTE | 2020-01-02 05:24 | NUR ---
Spoke to Dr. Jean: Spoke to Dr. Jean over the phone. Notified MD of patients SBP in the 170-190s. New orders received. Verified by readback. RN to input.
[2020-01-02] MEDS ORDERED: hydrALAZINE HCL 25 MG TABLET PO ONE (05:30)
[2020-01-02 06:20] LABS: BASOPHILS # (AUTO) 0.1 K/uL (0.0-0.2); BASOPHILS % (AUTO) 0.7 % (0.0-2.0); EOSINOPHILS # (AUTO) 0.4 K/uL (0.0-0.4); HEMATOCRIT 27.8 % (36-48); HEMOGLOBIN 9.4 g/dL (12.0-16.0); LYMPHOCYTES # (AUTO) 1.2 K/uL (1.0-5.5); LYMPHOCYTES % (AUTO) 11.3 % (20.5-51.5); MEAN CORPUSCULAR HEMOGLOBIN 32 pg (27-31); MEAN CORPUSCULAR HGB CONC 34 % (32-36); MEAN CORPUSCULAR VOLUME 94 fL (79.0-98.0); MONOCYTES # (AUTO) 1.1 K/uL (0.0-1.0); MONOCYTES % (AUTO) 10.2 % (1.7-9.3); NEUTROPHILS # (AUTO) 7.6 K/uL (1.8-7.7); NEUTROPHILS % (AUTO) 73.8 % (40.0-70.0); PLATELET COUNT (AUTO) 391 K/uL (130-430); RED BLOOD CELL COUNT(AUTO) 2.97 MIL/uL (4.2-6.2); RED CELL DISTRIBUTION WIDTH 14.6 % (9.0-15.0); WHITE BLOOD COUNT (AUTO) 10.4 K/uL (4.8-10.8)
[2020-01-02 06:28] LABS: ANION GAP 7 (5-15); CALCIUM 7.9 mg/dL (8.4-11.0); CHLORIDE 112 mmol/L (98-107); CREATININE 1.86 mg/dL (0.55-1.30); GLUCOSE 105 mg/dL (70-99); POTASSIUM 4.7 mmol/L (3.5-5.1); SODIUM SERUM 142 mmol/L (136-145); UREA NITROGEN, BLOOD 39 mg/dL (8-21)
--- NOTE | 2020-01-02 06:48 | NUR ---
Closing notes: Patient in bed, resting. No acute distress. Even and unlabored breathing on room air. IV site is patent and intact. Wagner is draining cloudy, yellow urine with sediments. All needs met. Bed is locked at lowest position. Bed alarm is on. Side rails up x3. Call light is with patient. Safety and fall precautions in place. Will endorse to dayshilarry RN.
--- NOTE | 2020-01-02 07:25 | NUR ---
AM ROUNDS: BEDSIDE REPORT FROM PAYTON NIGHT NURSE. PT NOTHING BY MOUTH SINCE MIDNIGHT ,FOR CYSTOSCOPY TODAY. CONSENT SIGN,FORM AT THE CHART. PRE OP CHECK LIST DONE BY NIGHT NURSE. VITAL SIGNS TAKEN,STILL WITH ELEVATED BP,AFTER HYDRALAZINE WAS GIVEN. BED LOCKED AT LOWEST POSITION. BED ALARM ON. CLARKE IN PLACE.
[2020-01-02 07:35] VITALS: BP_SYST 176
--- NOTE | 2020-01-02 07:35 | NUR ---
ANESTHESIOLOGIST: DR BERNSTEIN ANESTHESIOLOGIST SPOKE TO PATIENT AT BEDSIDE,EXPLAINED TO PATIENT SHE WILL BE PUT TO SLEEP DURING THE PROCEDURE.INFORMED DR BERNSTEIN PATIENT WANTS TO LET HER SON KNOW WELL. Addendum: 01/02/20 at 1100 by Tammy Villarreal RN ADDED NOTES: DR BERNSTEIN IS AWARE PT WITH ELEVATED BP.
--- NOTE | 2020-01-02 07:40 | NUR ---
CALLED FAMILY: LEFT MESSAGE VIA PT'S SON PHONE #[phone].
--- NOTE | 2020-01-02 07:44 | NUR ---
OR: WHEELED TO OR BY OR STAFF WITH RESOURCE NURSE VIA [facility].
[2020-01-02] MEDS ORDERED: LR 1,000 ML IV.SOLN IV ONE (07:52)
[2020-01-02] MEDS ORDERED: WATER FOR IRRIGATION,STERILE 4,000 ML IRRIG.SOLN IR ONE (07:52)
[2020-01-02] MEDS ORDERED: PROPOFOL 200MG/ 20ML VIAL (DIPRIVAN) IV ONE (07:52)
[2020-01-02] MEDS ORDERED: fentaNYL CITRATE/PF 100 MCG/2 ML AMP IVP PRN (09:00)
[2020-01-02] MEDS: RIVAROXABAN 15 MG TABLET PO SCH (09:00)
[2020-01-02] MEDS ORDERED: NALOXONE HCL 0.4 MG/ML AMP (NARCAN) IVP PRN (09:00)
[2020-01-02] MEDS ORDERED: HYDROmorphone 1 MG INJ. 1 MG/ML AMPUL IVP PRN (09:00)
--- NOTE | 2020-01-02 09:50 | NUR ---
HOLD ELIQUIS: HOLD ELIQUIS FOR TODAY'S DOSE PER DR BRODERICK.
--- NOTE | 2020-01-02 09:55 | NUR ---
SPOKE WITH SON: SPOKE WITH DASIA PT'S SON AND UPDATES GIVEN. WILL INFORM MD TO CALL SON FOR UPDATES.
[2020-01-02] MEDS: FLECAINIDE ACETATE 50 MG TABLET (TAMBOCOR) PO SCH ×2 (10:02→20:52)
[2020-01-02] MEDS: OXYBUTYNIN CHLORIDE 5 MG TABLET PO SCH (10:03)
[2020-01-02] MEDS: CARVEDILOL 12.5 MG TABLET (COREG) PO SCH (10:04)
[2020-01-02] MEDS: ALLOPURINOL 100 MG TABLET (ZYLOPRIM) PO SCH (10:04)
[2020-01-02] MEDS: PANTOPRAZOLE SODIUM 40 MG TAB PO SCH (10:06)
--- NOTE | 2020-01-02 10:10 | NUR ---
IN THE FLOOR: INFORMED DR BRODERICK THAT PT'S SON DASIA WANTS UPDATES . TALKING TO SON DASIA VIA PHONE.
[2020-01-02] MEDS: NITROFURANTOIN MONOHYD/M-CRYST 100 MG CAPSULE PO SCH ×2 (10:25→20:53)
[2020-01-02] MEDS ORDERED: levoFLOXacin 500 MG TABLET PO ONE (10:30)
[2020-01-02 12:15] VITALS: BP_SYST 144
[2020-01-02] MEDS ORDERED: LEVO500T89 PO (13:49)
--- NOTE | 2020-01-02 13:50 | NUR ---
DC ORDER: DC HOME.F/U WITH UROLOGY IN 1-2 WEEKS.HOLD XARELTO FOR 3 DAYS. EVALUATION AND TREATMENT FOR CLARKE CARE.
--- NOTE | 2020-01-02 13:53 | NUR ---
P.T. NOTES P.T. EVAL COMPLETED; REFER TO EVAL FOR DETAILS; WILL BENEFIT W/ P.T. POST ACUTE STAY.
--- NOTE | 2020-01-02 15:49 | NUR ---
HCP CASE MGT: SPOKE WITH THO MONTOYA ,ALREADY ARRANGED HH EVALUATION FOR CLARKE CATHETER CARE C/O MAYA TIARA P#[phone].
--- NOTE | 2020-01-02 15:50 | NUR ---
CALLED SON: LEFT MESSAGE C/O PT'S SON DASIA PHONE #[phone].
[2020-01-02 16:12] VITALS: BP_SYST 162
[2020-01-02] MEDS: MONTELUKAST 10 MG TABLET PO SCH (17:15)
--- NOTE | 2020-01-02 18:00 | NUR ---
F/u call with son: Spoke with pt's son Deni and according to him per Gillian hct case mgt, no detailed physical therapy info,if pt can walk or stand,to look up in am pending whitney ortiz and she will call md regarding this matter.
--- NOTE | 2020-01-02 18:20 | NUR ---
Page: Called Dr Thapa exchange and left message c/o exchange Tonya.
--- NOTE | 2020-01-02 18:55 | NUR ---
PAGED PAGED DOCTOR Otis CARTER WHO IS CAN RECONDITIONER FOR HCP
--- NOTE | 2020-01-02 19:25 | NUR ---
END OF SHIFT: ENDORSED TO NIGHT NURSE DORIAN,PATIENT IN STABLE CONDITION. SAFETY MEASURES RENDERED. Addendum: 01/02/20 at 1948 by Tammy Villarreal RN ADDED NOTES: INFORMED NIGHT NURSE DORIAN, WITH ORDERS HOLD ALOK PATRICK.
--- NOTE | 2020-01-02 19:25 | NUR ---
OPENING NOTES: RECEIVED REPORT FROM DAY SHIFT RN. PT RESTING IN BED, WATCHING TV. BREATHING EVEN AND UNLABORED TO RA. PT JUNE ANY PAIN AT THIS TIME. LEFT HAND 22G INTACT, IVF RUNNING ORDERED RATE. NO SIGNS OF INFILTRATION NOTED. BED ALARM ON, LOCKED IN LOWEST POSITION. CALL LIGHT WITHIN REACH.SAFETY AND FALL PRECAUTIONS MAINTAINED. WILL CONTINUE TO MONITOR. Addendum: 01/03/20 at 0447 by Yenifer Amaya RN ADD: CLARKE CATHETER IS DRAINING TO GRAVITY. NO BLOOD OR OTHER RESIDUAL NOTED IN CLARKE CATHETER.
--- NOTE | 2020-01-02 19:26 | NUR ---
SUPERVISOR INTERMEDIATES MD CALLED BACK: SPOKE WITH DR Otis CARTER AND INFORMED HIM REGARDING HCP CASE MGRobbie THO TOLD PATIENT'S SON DASIA PT NOTES NOT IN DETAILED ,SHE WILL F/U PT NOTES IN AM AND SAID SHE WILL INFORM MD PATRICK AND SON NOT READY FOR PATIENT TO TAKE HIM HOME FOR THIS REASON. WITH ORDERS FROM DR Otis CARTER , HOLD ALOK PATRICK AND TO TELL DR BRODERICK IN THE MORNING.
[2020-01-02 20:00] VITALS: BP_SYST 141
[2020-01-02] MEDS: SIMVASTATIN 40 MG TABLET PO SCH (20:53)
--- NOTE | 2020-01-02 20:53 | NUR ---
MED PASS: PATIENT GIVEN SCHEDULED PO MEDS. MEDICATION INDICATION AND POSSIBLE SIDE EFFECTS EXPLAINED TO PATIENT PATIENT VERBALIZED UNDERSTANDING. SAFETY AND FALL PRECAUTIONS ARE IN PLACE, WILL CONTINUE TO MONITOR PATIENT.
--- NOTE | 2020-01-02 22:00 | NUR ---
D/C IV: IV SITE NOTED TO BE INFILTRATED. IV D/C. DRY DRESSING APPLIED. Addendum: 01/03/20 at 0445 by Yenifer Amaya RN CORRECTION: CHARTED ON THE WRONG PATIENT. IV IS PATENT AND FLUSH WELL. IVF INFUSING.
[2020-01-03 00:10] VITALS: BP_SYST 158
--- NOTE | 2020-01-03 00:10 | NUR ---
RN ROUNDS: PATIENT IS IN BED, SLEEPING COMFORTABLY. CHEST RISE AND FALLS SYMMETRICALLY. NO S/S ACUTE DISTRESS NOTED. SAFETY AND FALL PRECAUTIONS ARE IN PLACE. CALL LIGHT IS WITH PATIENT. WILL MONITOR.
--- NOTE | 2020-01-03 02:30 | NUR ---
RN ROUNDS: PATIENT ASLEEP. NO S/S ACUTE DISTRESS NOTED. SAFETY AND FALL PRECAUTIONS ARE IN PLACE. CALL LIGHT IS WITH PATIENT. WILL MONITOR.
--- NOTE | 2020-01-03 04:25 | NUR ---
RN ROUNDS: PATIENT IS IN BED, CURRENTLY IS SLEEPING. BREATHING IS NON-LABORED AND EVEN ON RA. NO S/S ACUTE DISTRESS NOTED. SAFETY AND FALL PRECAUTIONS ARE IN PLACE. WILL CONTINUE TO MONITOR.
--- NOTE | 2020-01-03 06:55 | NUR ---
DR. ESCOBEDO IS VISITING PATIENT AND DISCUSSING DISCHARGE PLAN WITH PATIENT.
--- NOTE | 2020-01-03 06:56 | NUR ---
CLOSING NOTE: PATIENT IS IN BED, AWAKE, RESTING COMFORTABLY. RESPIRATION IS EVEN AND UNLABORED ON RA. CLARKE CATHETER IS DARNING TO GRAVITY. IVF INFUSING ORDERED RATE. NO S/S ACUTE DISTRESS NOTED. SAFETY AND FALL PRECAUTIONS ARE IN PLACE. CALL LIGHT IS WITH PATIENT. ALL NEEDS MET THROUGHOUT THE SHIFT. WILL ENDORSE PATIENT'S CARE TO DAY SHIFT RN.
--- NOTE | 2020-01-03 07:20 | NUR ---
OPENING NOTES PT AWAKE, ALERT, AND ORIENTED X2. NONLABORED BREATHING NOTED ON ROOM AIR, PT DENIES PAIN AND SOB AT THIS TIME. IV LINE INTACT AND PATENT, NO SIGNS OF INFILTRATION NOTED, FLUIDS RUNNING ORDERED PER MD, TOLERATING WELL. NO ACUTE DISTRESS NOTED. ALL NEEDS MET. CALL LIGHT IN REACH. FALL AND ASPIRATION PRECAUTIONS IN PLACE. CONTINUE TO MONITOR.
[2020-01-03 08:00] VITALS: BP_SYST 179
--- NOTE | 2020-01-03 09:20 | NUR ---
DR. BRODERICK AWARE OF PHYSICAL THERAPY'S NOTED AND RECOMMENDATIONS. NO NEW ORDERS RECEIVED.
[2020-01-03] MEDS: levoFLOXacin 500 MG TABLET PO SCH (09:28)
[2020-01-03] MEDS: ALLOPURINOL 100 MG TABLET (ZYLOPRIM) PO SCH (09:29)
[2020-01-03] MEDS: PANTOPRAZOLE SODIUM 40 MG TAB PO SCH (09:30)
[2020-01-03] MEDS: OXYBUTYNIN CHLORIDE 5 MG TABLET PO SCH (09:30)
[2020-01-03] MEDS: CARVEDILOL 12.5 MG TABLET (COREG) PO SCH ×2 (09:30→21:40)
[2020-01-03] MEDS: NITROFURANTOIN MONOHYD/M-CRYST 100 MG CAPSULE PO SCH ×2 (09:39→21:45)
[2020-01-03] MEDS: FLECAINIDE ACETATE 50 MG TABLET (TAMBOCOR) PO SCH ×2 (09:39→21:39)
--- NOTE | 2020-01-03 09:43 | NUR ---
ROUTINE MEDS ADMINISTERED ORDERED PER MD, EDUCATION GIVEN, TOLERATED WELL. CONTINUE TO MONITOR.
--- NOTE | 2020-01-03 10:55 | NUR ---
ROUNDS PT AWAKE AND ALERT. NO ACUTE DISTRESS NOTED. ALL NEEDS MET. CALL LIGHT IN REACH. CONTINUE TO MONITOR.
[2020-01-03 11:51] VITALS: BP_SYST 148
--- NOTE | 2020-01-03 12:30 | NUR ---
Nutrition F/U RD reviewed pt's current EMR including diet Hx, physician notes, nursing notes, pertinent labs/meds/procedures, care trends, and care activity. Admitting Diagnosis Sepsis, Renal Failure Reviewed Pertinent Medical/Surgical Hx Medical Record Family Member Other Medical History Comment: PMH: HTN, intracranial hemorrhage Pt also found w/ decreasing PO intake, metabolic encephalopathy, and complicated UTI per MD note. Subjective Information Pt continues to have poor PO intake, about 27% average PO intake x last [address] visit[address] S/p cytoscopy and bladder biopsy on 01/01 and per MD note, pt is stable to d/c home today. Noted pt's renal labs improved. Pt is not meeting her nutritional needs. Recommend continues Mechanical Soft Diet w/ Glucerna BID to meet pt's needs. Consider appetite stimulant if poor PO intake persists. Current Diet Order/Nutrition Support Mechanical Soft Diet x 8 days Pertinent Medications Protonix, Levaquin Pertinent Labs Na 142, K 4.7, BUN 39H (improved), Cr 1.86H (improved), BG 105H (trending down) Skin Integrity Comment: Charlie scale 16. No PIs and 2+ pitting BLE edema per concrete boom operator Current % PO Poor (25-49%) Estimated Energy Expenditure (kcals/day) 4465-1173 kcal/day (30-35 kcal/kg adj IBW for repletion) Estimated Protein Required (g/day) 68-74g pro/day (1.2-1.3g pro/kg adj IBW for repletion) Estimated Fluid Required (l/day) 9673-3898 ml/day (1ml/kcal/day for maintenance) Problem/Etiology/Signs/Symptoms Inadequate protein-energy intake r/t decreased appetite AEB poor PO intake less than 50% x 1 week per caregiver and son, and 15# (9%) wt loss in 1 month. *ongoing Altered nutrition-related lab-values r/t renal failure AEB elevated BUN and Cr labs. *improving Expected Outcomes/Goals -Will monitor diet tolerance and PO intake w/ goal of pt meeting at least 75% of estimated nutritional needs, labs trending WNL, normal GI function, skin integrity, and weight maintenance. Dietitian Recommendations *Recommend continue Mechanical Soft Diet *Recommend continue Glucerna BID to provide additional 440 kcal, 20 g protein to promote PO intake and for glycemic control. *Encourage pt to increase PO intake during meal times. *Consider appetite stimulant if poor PO intake persists. Follow Up High Risk: F/U in 2-3days
--- NOTE | 2020-01-03 12:36 | NUR ---
Dietitian Recommendations *Recommend continue Mechanical Soft Diet *Recommend continue Glucerna BID to provide additional 440 kcal, 20 g protein to promote PO intake and for glycemic control. *Encourage pt to increase PO intake during meal times. *Consider appetite stimulant if poor PO intake persists. Please see Nutrition F/U for details. CARMEN DANIEL
--- NOTE | 2020-01-03 13:00 | NUR ---
ROUNDS PT AWAKE AND ALERT. ALL NEEDS MET. CALL LIGHT IN REACH. CONTINUE TO MONITOR.
--- NOTE | 2020-01-03 15:00 | NUR ---
ROUNDS PT AWAKE, NO ACUTE DISTRESS NOTED. ASKED FOR WATER, GAVE WATER. ALL NEEDS MET. CALL LIGHT IN REACH. CONTINUE TO MONITOR.
[2020-01-03 16:17] VITALS: BP_SYST 141
[2020-01-03] MEDS: MONTELUKAST 10 MG TABLET PO SCH (17:01)
--- NOTE | 2020-01-03 17:02 | NUR ---
routine meds administered as ordered per md, education given, tolerated well. continue to monitor.
--- NOTE | 2020-01-03 18:51 | NUR ---
CLOSING NOTES PT AWAKE, ALERT, WATCHING TV IN BED. NONLABORED BREATHING NOTED ON ROOM AIR. NO S/S OF PAIN AND SOB AT THIS TIME. IV LINE INTACT AND PATENT, NO SIGNS OF INFILTRATION NOTED. NO ACUTE DISTRESS NOTED. ALL NEEDS MET. CALL LIGHT IN REACH. FALL AND ASPIRATION PRECAUTIONS IN PLACE. WILL ENDORSE TO NOC NURSE.
--- NOTE | 2020-01-03 19:30 | NUR ---
OPENING NOTES: RECEIVED REPORT FROM DAY SHIFT RN. PT RESTING IN BED, WATCHING TV. BREATHING EVEN AND UNLABORED TO RA. PT JUNE PAIN AT THIS TIME.IV ON LEFT FOREARM 22G INTACT.CLARKE CATHETER IS DRAINING TO GRAVITY.NO SIGNS OF INFILTRATION NOTED. BED ALARM ON, LOCKED IN LOWEST POSITION. CALL LIGHT WITHIN REACH.SAFETY AND FALL PRECAUTIONS MAINTAINED. WILL CONTINUE TO MONITOR.
[2020-01-03 20:00] VITALS: BP_SYST 183
[2020-01-03] MEDS ORDERED: cloNIDine HCL 0.1 MG TABLET PO PRN (20:45)
[2020-01-03] MEDS: SIMVASTATIN 40 MG TABLET PO SCH (21:35)
--- NOTE | 2020-01-03 21:40 | NUR ---
MED PASS: PATIENT GIVEN SCHEDULED PO MEDS. MED CRUSHED AND MIXED WITH APPLE SAUCE. MEDICATION INDICATION AND POSSIBLE SIDE EFFECTS EXPLAINED TO PATIENT PATIENT VERBALIZED UNDERSTANDING. SAFETY AND FALL PRECAUTIONS ARE IN PLACE, WILL CONTINUE TO MONITOR PATIENT.
--- NOTE | 2020-01-04 01:30 | NUR ---
RN ROUNDS: PATIENT IS AWAKE. BLOOD PRESSURE MEASURED AND IT IS ELEVATED. PAGED.
--- NOTE | 2020-01-04 01:36 | NUR ---
PAGED PAGED DOCTOR Otis CARTER
[2020-01-04] MEDS ORDERED: hydrALAZINE HCL 20 MG/ML VIAL IVP PRN (02:30)
--- NOTE | 2020-01-04 02:30 | NUR ---
SPOKE TO DR. CARTER. NEW ORDERS RECEIVED. WILL CARRY OUT.
--- NOTE | 2020-01-04 03:10 | NUR ---
BLOOD PRESSURE IS WITHIN NORMAL LIMITS.
--- NOTE | 2020-01-04 05:16 | NUR ---
CONSULT: CONSULT CALLED FOR DR. BARTLETT I SPOKE WITH TANOBIA COUNTER CHECKER #[id number] REASON FOR CONSULT: ELEVATED BLOOD PRESSURE REQUESTING CONSULT: DR. BRODERICK TELEVISION PRODUCTION TECHNICIAN PHONE NUMBER: [phone]
--- NOTE | 2020-01-04 06:04 | NUR ---
CLOSING NOTE: PATIENT IS IN BED,RESTING COMFORTABLY. RESPIRATION IS EVEN AND UNLABORED ON RA. CLARKE CATHETER IS DARNING TO GRAVITY. NO S/S ACUTE DISTRESS NOTED. SAFETY AND FALL PRECAUTIONS ARE IN PLACE. CALL LIGHT IS WITH PATIENT. ALL NEEDS MET THROUGHOUT THE SHIFT. WILL ENDORSE PATIENT'S CARE TO DAY SHIFT RN.
--- NOTE | 2020-01-04 07:05 | NUR ---
opening note patient is awake and alert sitting up in bed no signs of any distress, breathing is equal and non labored. report was endorsed by night nurse. Patient educated corrosion technician light, call light is with patient. patient has no other needs at this time.
[2020-01-04] MEDS: FLECAINIDE ACETATE 50 MG TABLET (TAMBOCOR) PO SCH (08:37)
[2020-01-04] MEDS: NITROFURANTOIN MONOHYD/M-CRYST 100 MG CAPSULE PO SCH (08:37)
[2020-01-04] MEDS: CARVEDILOL 12.5 MG TABLET (COREG) PO SCH (08:38)
[2020-01-04 08:39] VITALS: BP_SYST 140
[2020-01-04] MEDS: PANTOPRAZOLE SODIUM 40 MG TAB PO SCH (08:39)
[2020-01-04] MEDS: ALLOPURINOL 100 MG TABLET (ZYLOPRIM) PO SCH (08:39)
[2020-01-04] MEDS: OXYBUTYNIN CHLORIDE 5 MG TABLET PO SCH (08:39)
--- NOTE | 2020-01-04 08:41 | NUR ---
medication Patient scheduled medication given per order. patient is awake and alert, sitting up in bed eating breakfast. patient educated direct sales professional light,call light is with her. patient shows no signs of any distress, breathing is equal and non labored. patient requesting Warm blanket, provided to patient. patient has no other needs at this time.
[2020-01-04] MEDS ORDERED: hydrALAZINE HCL 25 MG TABLET PO SCH (09:00)
[2020-01-04] MEDS: levoFLOXacin 500 MG TABLET PO SCH (10:36)
--- NOTE | 2020-01-04 10:39 | NUR ---
MEDICATION PATIENTS SCHEDULED MEDICATION GIVEN PER ORDER. PATIENT IS CURRENTLY HAVE ULTRA SOUND DONE TECH IS AT BED SIDE. PATIENT SHOWS NO SIGNS OF ANY DISTRESS BREATHING S EQUAL AND NON LABORED. PATIENT EDUCATED PILOT BOAT CAPTAIN LIGHT FOR ASSISTANCE. NO OTHER NEEDS AT THIS TIME.
--- NOTE | 2020-01-04 11:16 | NUR ---
PAGED PAGED DR.[email or web address] AT [phone] SPOKE WITH RITCHIE.
[2020-01-04 12:29] VITALS: BP_SYST 142
--- NOTE | 2020-01-04 12:30 | NUR ---
I SPOKE WITH PATIENTS YANETH VELEZ HE STATES THEY HAVE A [facility] AND HOSPITAL BED AT HOME ALREADY.PER CANCEL CONSULT FOR CARDIOLOGY MAMI FOR ELEVATED BLOOD PRESSURE, CONTINUE ON BLOOD PRESSURE MEDICATION. TO PLACE ORDER. VERIFIED HOME HEALTH.
[2020-01-04] MEDS ORDERED: HYDR-4039 PO (12:45)
[2020-01-04 13:21] VITALS: BP_SYST 142
--- NOTE | 2020-01-04 14:44 | NUR ---
DISCHARGE PATIENT WHEELED OUT VIA HER PERSONAL WHEELCHAIR. PATIENT CHANGED INTO HER CLOTHES. PATIENT'S IV CATHETER REMOVED CATHETER INTACT, APPLIED GAUZE AND TAPE TO INSERTION SITE. PATIENT HAS ALL BELONGINGS WITH HER. PATIENTS CLARKE CATHETER BAG CHANGED TO NEW BAG PRIOR TO DISCHARGE. PATIENTS ID BAND REMOVED. PATIENT ASSISTED INTO CAR. PATIENT SPOUSE WAS EDUCATED ON DISCHARGE PAPER WORK, NEW PRESCRIPTION AND CLARKE CATHETER CARE. PATIENT SPOUSE VERBALIZED UNDERSTANDING. PATIENTS SPOUSE STATES HE HAS RECEIVED CALLS ALREADY FROM HOME HEALTH CARE. PATIENT AND SPOUSE STATE NO OTHER NEEDS AT THIS TIME PATIENT'S SPOUSE GIVEN DISCHARGE PAPER WORK AND PRESCRIPTION.
--- NOTE | 2020-01-05 12:31 | NUR ---
Discharge Planning Late Note Noted order for hospital bed, slim lift, and HH with PT. Noted nurse notes that these were in place. Phoned Gillian MONTOYA CM for details. Slim lift and hospital bed were provided by [facility] provided by [facility].
--- NOTE | 2020-01-05 13:02 | NUR ---
PHYSICAL THERAPY CO-SIGN The Physical Therapy Progress Notes documented by [facility] have been reviewed. Reviewed/Co-Signed by: Doreen Gilbert PT Documentation Done by:MARIANA BROWN SURGICAL ASSIST Addendum: 01/05/20 at 1303 by Doreen Gilbert PT Amended: Links added.
--- NOTE | 2020-01-05 15:00 | NUR ---
Discharge Follow Up Phone Call Phoned patient, , and spoke with her , Everett. Everett stated that patient was fine and eating. Their son is also helping with the care. They filled patient's prescriptions but are concerned about medication changes. Explained that was why the follow up with the PCP is so important and HH nurse visit. He will call PCP today for the follow up appointment and make appointments also with urology and nephrology. He stated that [facility] had called but he thought they wanted to place patient in a home. He wants them to call back and do HH as ordered. No other questions or concerns. Phoned [facility] , , and spoke with Coreen. She will notify intake to call patient's again to set up HH.
== END 2020-01-04 14:20 | disposition home health service (06) | DRG 853 ==
LOC: SED 11:57 → STU 16:04 → SMU 12-28 10:47 → UNDODISIN 12-29 21:45
PROVIDERS: ADMIT Internal Medicine Hospice and Palliative Medicine; ATTEND Internal Medicine Hospice and Palliative Medicine
PROC: 0T5B8ZZ Destruction of Bladder, Via Natural or Artificial Opening Endoscopic (ICD-10-PCS; 2020-01-02)
PROC: 0TBB8ZX Excision of Bladder, Via Natural or Artificial Opening Endoscopic, Diagnostic (ICD-10-PCS; principal; 2020-01-02 07:52)
DX: A41.51 Sepsis due to Escherichia coli [E. coli] (principal); G93.41 Metabolic encephalopathy; E43 Unspecified severe protein-calorie malnutrition; N17.0 Acute kidney failure with tubular necrosis; N13.6 Pyonephrosis; E87.1 Hypo-osmolality and hyponatremia; I10 Essential (primary) hypertension; B96.1 Klebsiella pneumoniae [K. pneumoniae] as the cause of diseases classified elsewhere; Z20.828 Contact with and (suspected) exposure to other viral communicable diseases; I48.91 Unspecified atrial fibrillation; Z96.649 Presence of unspecified artificial hip joint; R33.9 Retention of urine, unspecified; N31.9 Neuromuscular dysfunction of bladder, unspecified; E87.5 Hyperkalemia; E86.0 Dehydration; Z68.28 Body mass index [BMI] 28.0-28.9, adult; Z86.73 Personal history of transient ischemic attack (TIA), and cerebral infarction without residual deficits
CPT/HCPCS: 36415; 71045; 76770; 80048; 80053; 81000-TC; 83605; 84484; 85025; 85610-TC; 85730-TC; 87040-TC; 87081; 87086; 88305; 93005; 96361; 96365; 97110-GP; 97112-GP; 97116-GP; 99285; G0378; J0360; J2543; J2704; J7030; J7120